=== PATIENT | male | born 1965 | race Caucasian/White ===

== ENCOUNTER → 2017-01-05 | Outpatient (CLI) | payer OTHER ==
--- NOTE | 2017-01-05 13:22 | KCIC ---
FOOT RIGHT 3V Indication: Stepped on glass 3 months ago, in the right fifth MTP joint region. . Comparison: No comparison is available. FINDINGS: No evidence of radiopaque soft tissue foreign body. Note that not all glass density is radiopaque. No evidence of acute fracture or aggressive bone destruction. Joint spaces and alignment are intact. IMPRESSION: No acute radiographic findings. If further workup for soft tissue foreign body is indicated, consider ultrasound of the area. Electronically signed by: Chuck Shepherd MD (01/05/2017 1:18 PM) [facility]-KC[facility]2
== END | disposition home or self-care (01) ==
LOC: KCIC 10:34
PROVIDERS: ATTEND Family Medicine
DX: M79.671 Pain in right foot (principal)
CPT/HCPCS: 73630

== ENCOUNTER → 2019-09-29 | Outpatient (CLI) | payer OTHER ==
[~2019-09-29] MED LIST: CONTRAST GIVEN. MC PRN; IOHEXOL 300 MG/ML 100ML VIAL. IV ONE
--- NOTE | 2019-09-29 09:11 | KCIC ---
CT study soft tissues the neck with contrast Clinical indications: Palpable mass left side 4 days. Left-sided neck pain. TECHNIQUE: After IV infusion of 70 mL of Omnipaque 300, helical CT scanning of the soft tissues of the neck from the base of skull down through the lung apices was performed. BB was placed over the palpable area. PQRS compliance Statement One or more of the following individualized dose reduction techniques were utilized for this study: 1. Automated exposure control 2. Adjustment of the mA and/or kV according to patient size 3. Use of iterative reconstruction technique FINDINGS: In the area of palpable abnormality of the lower left side of the neck, an irregular soft tissue mass is seen contiguous with the posterior aspect of the left sternocleidomastoid muscle. This mass measures 4.5 cm in vertical dimension and 4.4 cm in transverse dimension and 2.6 cm in AP dimension. There is a peripheral thick solid component with a central hypodense component. Central hypodense component measures 2.1 cm in size. It demonstrates Hounsfield unit measurements of 13. This is consistent with fluid. Therefore, this may represent a necrotic cystic soft tissue mass/lymph node or an abscess. There is mild adjacent inflammatory change. This compresses but does not occlude the left internal jugular vein. Bilateral cervical lymphadenopathy is evident. Largest lymph node on the left side is seen within the lower lateral left side of the neck just superior to the left clavicle anterior to the trapezius muscle measuring 19 mm. The largest lymph node on the right side is seen deep to sternocleidomastoid muscle measuring 14 mm. Both of these measurements were performed in the axial plane. The thyroid gland is unremarkable. The true and false vocal cords and preepiglottic fat space and epiglottis and aryepiglottic folds are normal. The palatine tonsillar fossa and adenoids are unremarkable. Mild sublingual tonsillar hyperplasia is seen within the valleculae. Otherwise the base of the tongue is unremarkable. No prevertebral or parapharyngeal soft tissue mass/abscess is seen. No lung apical infiltrate is seen. No opacification of the maxillary sinuses is seen. Only the inferior aspect of the sphenoid sinuses are seen in this study which are clear. The ethmoid and frontal sinuses are not seen in this study. No lytic process or periapical dental disease is seen. The submandibular and parotid salivary glands are unremarkable. IMPRESSION: Palpable lump of the left side of the neck corresponds to an irregular soft tissue mass with a central fluid like hypodense component. Differential considerations include necrotic cystic soft tissue mass including sarcoma or necrotic cystic lymph node related to lymphoma/metastatic disease or intramuscular/perimuscular soft tissue abscess. Bilateral cervical lymphadenopathy which may be reactive in nature or could be secondary to lymphoma. Electronically signed by: Chris Keane MD (09/29/2019 9:08 AM) [id number]
== END ==
LOC: KCIC CT 08:01
PROVIDERS: ATTEND Family Medicine
DX: R22.1 Localized swelling, mass and lump, neck (principal)
CPT/HCPCS: 70491; Q9967

== ENCOUNTER 2019-10-12 08:20 | Outpatient (CLI) | payer OTHER ==
[~2019-10-12] VITALS: Ht 180.3 cm; Wt 88.0 kg
[2019-10-12 09:19] VITALS: BP 142/93
[2019-10-12] MEDS ORDERED: LIDOCAINE WITH 8.4% SOD BICARB 3 ML DISP.SYRIN. ONE (09:22)
[2019-10-12] MEDS ORDERED: LIDOCAINE WITH 8.4% SOD BICARB 3 ML DISP.SYRIN. INJ ONE (09:30)
[2019-10-12 09:34] VITALS: BP 140/85
[2019-10-12 09:54] VITALS: BP 144/90
[2019-10-12 10:10] VITALS: BP 148/65
[2019-10-12 10:25] VITALS: BP 131/93
[2019-10-12 10:40] VITALS: BP 146/96
--- NOTE | 2019-10-12 10:45 | NUR ---
Discharge Note: RAHUL CLARK Discharge instructions and discharge home medications reviewed with Patient and a copy given. All questions have been answered and understanding verbalized. The following instructions and handouts were given: incision care Discontinued lines and drains: N/A Patient discharged to home with via personal vehicle.
--- NOTE | 2019-10-13 09:13 | RAD ---
Ultrasound-guided biopsy, left neck mass 10/12/2019 INDICATION: Left neck mass Discussion The procedure was explained in its entirety to the patient or the patients designated associate financial representative by a member of the treatment team, including a discussion of the risks, benefits and commonly accepted alternatives to the procedure, as well as the expected consequences of no therapy whatsoever. Discussion of the risks included, but was not limited to, those that are most frequent and those that are rare but possibly severe or life-threatening, as well as the possibility of unforeseen complications. All elements of maximal sterile barrier technique including the use of a cap, mask, sterile gown, sterile gloves, sterile sheet, appropriate hand hygiene, and 2% chlorhexidine for cutaneous antisepsis (or acceptable alternative antiseptic per current guidelines) were followed for this procedure. Ultrasound evaluation demonstrates a heterogenous mass in the left neck just deep to the sternocleidomastoid. The appearance suggests a partially necrotic lymph node. Other smaller, but abnormal lymph nodes are noted adjacent to this mass. The overlying skin was prepped and draped as described. 1% lidocaine was administered for local anesthesia. Under direct ultrasound guidance multiple passes through the mass are made with an 18-gauge core biopsy needle. Examination of solid and necrotic material was obtained. 17-gauge needle was advanced into the center of the lesion and aspiration performed yielding approximately 5 cc of somewhat purulent appearing material. No further material could be aspirated. Samples were sent for culture, cytologic evaluation, and flow cytometry. Manual pressure was held. Sterile dressings were applied. No immediate complications were identified. Impression: Ultrasound-guided biopsy, left neck mass
== END 2019-10-12 10:45 | disposition home or self-care (01) ==
LOC: INTRAD 08:20
PROVIDERS: ATTEND Surgery
DX: R22.1 Localized swelling, mass and lump, neck (principal)
CPT/HCPCS: 38505; 76942; 87071; 87075; 87102; 87116; J3490; 76937

== ENCOUNTER → 2019-10-26 | Outpatient (CLI) | payer OTHER ==
[2019-10-12 10:40] VITALS: BP 146/96
[2019-10-26 10:31] LABS: BASO % 0 % (0-3); EOS # 0.1 x10^3/uL (0.0-0.7); EOS % 1 % (0-3); HEMATOCRIT 48.5 % (39.0-53.0); HEMOGLOBIN 16.9 g/dL (13.0-17.5); LYMPH # 0.9 x10^3/uL (1.0-4.8); LYMPH % 12 % (24-48); MEAN CORPUSCULAR HEMOGLOBIN 33 pg (25-35); MEAN CORPUSCULAR HGB CONC 35 g/dL (31-37); MEAN CORPUSCULAR VOLUME 94 fL (79-100); MONO # 0.6 x10^3/uL (0.0-1.1); MONO % 8 % (0-9); NEUT # 6.4 x10^3/uL (1.8-7.7); NEUT % 79 % (31-73); PLATELET COUNT 246 x10^3/uL (140-400); RED BLOOD COUNT 5.17 x10^6/uL (4.30-5.70); RED CELL DISTRIBUTION WIDTH 13.1 % (11.5-14.5); WHITE BLOOD COUNT 8.1 x10^3/uL (4.0-11.0)
[2019-10-26 10:46] LABS: CALCIUM 9.2 mg/dL (8.5-10.1); GFR 78.2; POTASSIUM 4.2 mmol/L (3.5-5.1)
[2019-10-26 10:52] LABS: ALBUMIN 3.9 g/dL (3.4-5.0); TOTAL BILIRUBIN 0.7 mg/dL (0.2-1.0); TOTAL PROTEIN 7.8 g/dL (6.4-8.2)
== END | disposition home or self-care (01) ==
LOC: ONCLAB 10:09
PROVIDERS: ATTEND Internal Medicine Hematology & Oncology
DX: C77.0 Secondary and unspecified malignant neoplasm of lymph nodes of head, face and neck (principal)
CPT/HCPCS: 36415; 80053; 85025

== ENCOUNTER → 2019-10-27 | Outpatient (CLI) | payer OTHER ==
[2019-10-12 10:40] VITALS: BP 146/96
--- NOTE | 2019-10-27 18:36 | RAD ---
EXAM: PET W CT SKULL TO MIDTHIGH EXAM DATE: 10/27/2019 INDICATION: Reason: MALIGNANT CARCINOID TUMOR ON NECK / Spl. 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 RADIOPHARMACEUTICAL: 12.4 mCi of F-18 Fluorodeoxyglucose (FDG) I.V. via the right antecubital fossa. TECHNIQUE: Patient weight: 196 pounds. Following at least four-hour fasting, the patient's blood glucose was 90 mg/dl. Approximately 1 hour after administration of FDG, overlapping emission scanning was performed from the orbital meatal line through the pelvis. A low-dose CT was performed for attenuation correction purposes and anatomic localization. Fused images of PET and CT were reviewed. Any standardized uptake values (SUV) reported are maximum values within a volume region of interest, expressed in gm/ml. COMPARISON: CT soft tissue neck with IV contrast of 09/29/2019 FINDINGS: PET: Head and neck shows asymmetric FDG uptake in the left base of tongue and vallecula to a max SUV of 8.6. In addition, multiple left level 2 cervical lymph nodes showing central hypodensity on contrast enhanced CT show abnormal FDG uptake to max SUV of 11.1. The dominant palpable left neck mass likely represents diffusely infiltrated left level 4 cervical lymph node with evidence of extracapsular terminal spread (or post biopsy changes) with central necrosis. It shows abnormal uptake to max SUV of 18.4. Additional asymmetrically enlarged left level 4 cervical lymph nodes between the carotid sheath and the anterior scalene muscle immediately lateral to the thyroid gland are also present, showing abnormal FDG uptake to a max SUV of 10.7 (although due to their proximity to the dominant left neck mass, may be potentially volume averaged and thus difficult to accurately measure FDG uptake). Finally, left-sided level 5 cervical nodes also show abnormal FDG uptake, the larger of which is likely the other palpable left neck mass. This shows an abnormal FDG uptake to max SUV of 6.8. There are right-sided level 2 cervical nodes also showing abnormal FDG uptake to max SUV of 5.8. There are also right-sided level 3 cervical nodes that show abnormal FDG uptake to a max SUV of 4.4. No abnormal FDG uptake is otherwise appreciated in the included field of view. This includes the chest, abdomen, pelvis and skeletal system. CT: Chest shows no lung nodules, masses or suspicious opacities. There is no adenopathy or pleural effusion. Abdomen and pelvis show no visceral organ abnormalities and no acute bowel pathology with scattered colonic diverticuli incidentally noted. There is a fat-containing umbilical hernia. Prostate mildly enlarged measuring 5.5 cm in diameter. No acute or aggressive appearing osseous lesions. IMPRESSION: 1. Abnormal FDG uptake in the left greater than right bilateral cervical lymph nodes from levels 2 through 5 as described, compatible with patient's history of biopsy-proven squamous cell carcinoma. 2. There is asymmetric FDG uptake at the left base of tongue and vallecula of uncertain significance. Recommend correlation with clinical exam. 3. No evidence of thoracic malignancy or of distant metastatic disease. Electronically signed by: Jacqueline García MD (10/27/2019 6:33 PM) [id number]
== END | disposition home or self-care (01) ==
LOC: PETSC 10:35
PROVIDERS: ATTEND Otolaryngology Otolaryngology/Facial Plastic Surgery
DX: R22.1 Localized swelling, mass and lump, neck (principal)
CPT/HCPCS: 78815; A9552

== ENCOUNTER → 2019-11-09 | Outpatient (CLI) | payer OTHER ==
[2019-10-12 10:40] VITALS: BP 146/96
[2019-11-09 08:32] LABS: BASO % 1 % (0-3); EOS # 0.1 x10^3/uL (0.0-0.7); EOS % 2 % (0-3); HEMATOCRIT 43.2 % (39.0-53.0); HEMOGLOBIN 15.4 g/dL (13.0-17.5); LYMPH # 0.8 x10^3/uL (1.0-4.8); LYMPH % 14 % (24-48); MEAN CORPUSCULAR HEMOGLOBIN 33 pg (25-35); MEAN CORPUSCULAR HGB CONC 36 g/dL (31-37); MEAN CORPUSCULAR VOLUME 93 fL (79-100); MONO # 0.4 x10^3/uL (0.0-1.1); MONO % 6 % (0-9); NEUT # 4.5 x10^3/uL (1.8-7.7); NEUT % 77 % (31-73); PLATELET COUNT 197 x10^3/uL (140-400); RED BLOOD COUNT 4.63 x10^6/uL (4.30-5.70); RED CELL DISTRIBUTION WIDTH 12.7 % (11.5-14.5); WHITE BLOOD COUNT 5.9 x10^3/uL (4.0-11.0)
[2019-11-09 08:54] LABS: CALCIUM 8.7 mg/dL (8.5-10.1); GFR 78.2
[2019-11-09 08:58] LABS: ALBUMIN 3.6 g/dL (3.4-5.0); ALBUMIN/GLOBULIN RATIO 1.2 (1.0-1.7); TOTAL BILIRUBIN 0.4 mg/dL (0.2-1.0); TOTAL PROTEIN 6.6 g/dL (6.4-8.2)
== END | disposition home or self-care (01) ==
LOC: ONCLAB 08:06
PROVIDERS: ATTEND Internal Medicine Hematology & Oncology
DX: C77.0 Secondary and unspecified malignant neoplasm of lymph nodes of head, face and neck (principal)
CPT/HCPCS: 36415; 80053; 85025

== ENCOUNTER → 2019-11-16 | Outpatient (CLI) | payer OTHER ==
[2019-11-16 08:28] LABS: BASO % 0 % (0-3); EOS # 0.1 x10^3/uL (0.0-0.7); EOS % 1 % (0-3); HEMATOCRIT 44.2 % (39.0-53.0); HEMOGLOBIN 15.7 g/dL (13.0-17.5); LYMPH # 0.6 x10^3/uL (1.0-4.8); LYMPH % 10 % (24-48); MEAN CORPUSCULAR HEMOGLOBIN 33 pg (25-35); MEAN CORPUSCULAR HGB CONC 35 g/dL (31-37); MEAN CORPUSCULAR VOLUME 93 fL (79-100); MONO # 0.6 x10^3/uL (0.0-1.1); MONO % 10 % (0-9); NEUT # 4.8 x10^3/uL (1.8-7.7); NEUT % 79 % (31-73); PLATELET COUNT 261 x10^3/uL (140-400); RED BLOOD COUNT 4.77 x10^6/uL (4.30-5.70); RED CELL DISTRIBUTION WIDTH 12.5 % (11.5-14.5); WHITE BLOOD COUNT 6.1 x10^3/uL (4.0-11.0)
[2019-11-16 08:35] LABS: CALCIUM 9.3 mg/dL (8.5-10.1); CREATININE 1.1 mg/dL (0.7-1.3); POTASSIUM 4.1 mmol/L (3.5-5.1)
[2019-11-16 08:40] LABS: ALBUMIN 3.5 g/dL (3.4-5.0); ALBUMIN/GLOBULIN RATIO 0.9 (1.0-1.7); TOTAL BILIRUBIN 0.5 mg/dL (0.2-1.0); TOTAL PROTEIN 7.4 g/dL (6.4-8.2)
== END | disposition home or self-care (01) ==
LOC: ONCLAB 08:16
PROVIDERS: ATTEND Internal Medicine Hematology & Oncology
DX: C01 Malignant neoplasm of base of tongue (principal)
CPT/HCPCS: 36415; 80053; 85025

== ENCOUNTER → 2019-11-17 | Outpatient (CLI) | payer OTHER ==
[~2019-11-17] VITALS: Ht 177.8 cm; Wt 88.5 kg
[~2019-11-17] MED LIST changes: -CONTRAST GIVEN. MC PRN; -IOHEXOL 300 MG/ML 100ML VIAL. IV ONE; +LIDOCAINE WITH 8.4% SOD BICARB 3 ML DISP.SYRIN. INJ ONE; +LIDOCAINE WITH 8.4% SOD BICARB 3 ML DISP.SYRIN. ONE
[2019-11-17 07:55] VITALS: BP 151/98
--- NOTE | 2019-11-17 13:23 | RAD ---
Exam: Fluoroscopic and ultrasound guided right percutaneous inserted central venous catheter placement 11/17/2019 11:19 AM .Indication: CHEMOTHERAPY Technique: Informed oral and written consent were obtained. The right upper extremity was prepped and draped using sterile barrier technique. All elements of maximal sterile barrier technique including the use of a cap, mask, sterile gown, sterile gloves, large sterile sheet, appropriate hand hygiene, and 2% chlorhexidine for cutaneous antisepsis (or acceptable alternative antiseptic per current guidelines) were followed for this procedure.. Real-time ultrasound demonstrated a patent right basilic vein which was prepped and draped in usual sterile fashion. 1% lidocaine used for local anesthesia. Using real-time ultrasound guidance the access needle percutaneously punctured the selected right basilic vein. Reference ultrasound images were saved to the medical record. A guidewire was advanced through the needle to the cavoatrial junction, and a peel-away sheath placed. The catheter was cut to length and inserted through the peel-away sheath such that its tip is at the cavoatrial junction. The wire and sheath were removed, and the catheter secured in place, and a sterile dressing was applied. Catheter was found to flush and aspirate normally. No immediate complications are identified. FLUORO TIME 0.1 minutes DOSE AREA PRODUCT: 0.1 Gycm2 Impression: Ultrasound and fluoroscopically guided placement of a right upper extremity PICC line.
== END | disposition home or self-care (01) ==
LOC: INTRAD 07:38
PROVIDERS: ATTEND Physician Assistant
DX: C01 Malignant neoplasm of base of tongue (principal); Z79.899 Other long term (current) drug therapy
CPT/HCPCS: 36573; C1751; C1892; J3490; 77001

== ENCOUNTER → 2019-11-23 | Outpatient (CLI) | payer OTHER ==
[2019-11-17 07:55] VITALS: BP 151/98
[2019-11-23 08:38] LABS: BASO % 0 % (0-3); EOS # 0.1 x10^3/uL (0.0-0.7); EOS % 1 % (0-3); HEMATOCRIT 42.3 % (39.0-53.0); HEMOGLOBIN 14.8 g/dL (13.0-17.5); LYMPH # 0.3 x10^3/uL (1.0-4.8); MEAN CORPUSCULAR HEMOGLOBIN 32 pg (25-35); MEAN CORPUSCULAR HGB CONC 35 g/dL (31-37); MEAN CORPUSCULAR VOLUME 92 fL (79-100); MONO # 0.4 x10^3/uL (0.0-1.1); MONO % 9 % (0-9); NEUT # 3.9 x10^3/uL (1.8-7.7); PLATELET COUNT 170 x10^3/uL (140-400); RED BLOOD COUNT 4.59 x10^6/uL (4.30-5.70); RED CELL DISTRIBUTION WIDTH 12.6 % (11.5-14.5); WHITE BLOOD COUNT 4.7 x10^3/uL (4.0-11.0)
[2019-11-23 08:42] LABS: LYMPH % 9 % (24-48)
[2019-11-23 08:43] LABS: NEUT % 81 % (31-73)
[2019-11-23 08:51] LABS: CALCIUM 8.9 mg/dL (8.5-10.1); CREATININE 0.9 mg/dL (0.7-1.3); GFR 88.3; POTASSIUM 4.3 mmol/L (3.5-5.1)
[2019-11-23 08:55] LABS: ALBUMIN 3.5 g/dL (3.4-5.0); TOTAL BILIRUBIN 0.5 mg/dL (0.2-1.0); TOTAL PROTEIN 7.1 g/dL (6.4-8.2)
== END | disposition home or self-care (01) ==
LOC: ONCLAB 08:12
PROVIDERS: ATTEND Internal Medicine Hematology & Oncology
DX: C77.0 Secondary and unspecified malignant neoplasm of lymph nodes of head, face and neck (principal)
CPT/HCPCS: 36415; 80053; 85025

== ENCOUNTER → 2019-11-30 | Outpatient (CLI) | payer OTHER ==
[2019-11-17 07:55] VITALS: BP 151/98
[2019-11-30 08:17] LABS: BASO % 0 % (0-3); EOS % 1 % (0-3); HEMATOCRIT 42.4 % (39.0-53.0); LYMPH # 0.2 x10^3/uL (1.0-4.8); LYMPH % 5 % (24-48); MEAN CORPUSCULAR HEMOGLOBIN 33 pg (25-35); MEAN CORPUSCULAR HGB CONC 35 g/dL (31-37); MEAN CORPUSCULAR VOLUME 93 fL (79-100); MONO # 0.5 x10^3/uL (0.0-1.1); MONO % 13 % (0-9); NEUT # 3.2 x10^3/uL (1.8-7.7); NEUT % 80 % (31-73); PLATELET COUNT 181 x10^3/uL (140-400); RED BLOOD COUNT 4.59 x10^6/uL (4.30-5.70); RED CELL DISTRIBUTION WIDTH 12.3 % (11.5-14.5)
[2019-11-30 08:33] LABS: CALCIUM 9.4 mg/dL (8.5-10.1); CREATININE 1.1 mg/dL (0.7-1.3); POTASSIUM 4.3 mmol/L (3.5-5.1)
[2019-11-30 08:38] LABS: ALBUMIN 3.6 g/dL (3.4-5.0); ALBUMIN/GLOBULIN RATIO 0.9 (1.0-1.7); MAGNESIUM 2.2 mg/dL (1.8-2.4); TOTAL BILIRUBIN 0.7 mg/dL (0.2-1.0); TOTAL PROTEIN 7.5 g/dL (6.4-8.2)
== END ==
LOC: ONCLAB 08:00
PROVIDERS: ATTEND Internal Medicine Hematology & Oncology
DX: C01 Malignant neoplasm of base of tongue (principal)
CPT/HCPCS: 36415; 80053; 83735; 85025

== ENCOUNTER → 2019-12-07 | Outpatient (CLI) | payer OTHER ==
[2019-11-17 07:55] VITALS: BP 151/98
[2019-12-07 08:19] LABS: BASO % 0 % (0-3); EOS % 1 % (0-3); HEMATOCRIT 37.3 % (39.0-53.0); HEMOGLOBIN 13.2 g/dL (13.0-17.5); LYMPH # 0.1 x10^3/uL (1.0-4.8); LYMPH % 5 % (24-48); MEAN CORPUSCULAR HEMOGLOBIN 33 pg (25-35); MEAN CORPUSCULAR HGB CONC 35 g/dL (31-37); MEAN CORPUSCULAR VOLUME 93 fL (79-100); MONO # 0.2 x10^3/uL (0.0-1.1); MONO % 8 % (0-9); NEUT % 86 % (31-73); PLATELET COUNT 100 x10^3/uL (140-400); RED BLOOD COUNT 4.03 x10^6/uL (4.30-5.70); RED CELL DISTRIBUTION WIDTH 12.7 % (11.5-14.5); WHITE BLOOD COUNT 2.3 x10^3/uL (4.0-11.0)
[2019-12-07 08:27] LABS: CALCIUM 9.1 mg/dL (8.5-10.1); GFR 78.2
[2019-12-07 08:33] LABS: ALBUMIN 3.6 g/dL (3.4-5.0); ALBUMIN/GLOBULIN RATIO 1.1 (1.0-1.7); MAGNESIUM 1.8 mg/dL (1.8-2.4); TOTAL BILIRUBIN 0.7 mg/dL (0.2-1.0)
[2019-12-07 09:10] LABS: % EOS 2 % (0-5); % LYMPHS 6 % (24-48); % MONOS 6 % (0-10); % SEGS 86 % (35-66); PLT ESTIMATE DECREASED (ADEQUATE)
== END ==
LOC: ONCLAB 08:02
PROVIDERS: ATTEND Physician Assistant
DX: C01 Malignant neoplasm of base of tongue (principal)
CPT/HCPCS: 36415; 80053; 83735; 85007; 85025

== ENCOUNTER → 2019-12-14 | Outpatient (CLI) | payer OTHER ==
[2019-11-17 07:55] VITALS: BP 151/98
[2019-12-14 09:23] LABS: BASO % 0 % (0-3); EOS % 0 % (0-3); HEMATOCRIT 36.6 % (39.0-53.0); HEMOGLOBIN 12.7 g/dL (13.0-17.5); LYMPH # 0.1 x10^3/uL (1.0-4.8); LYMPH % 4 % (24-48); MEAN CORPUSCULAR HEMOGLOBIN 32 pg (25-35); MEAN CORPUSCULAR HGB CONC 35 g/dL (31-37); MEAN CORPUSCULAR VOLUME 93 fL (79-100); MONO # 0.2 x10^3/uL (0.0-1.1); MONO % 9 % (0-9); NEUT # 1.9 x10^3/uL (1.8-7.7); NEUT % 86 % (31-73); PLATELET COUNT 89 x10^3/uL (140-400); RED BLOOD COUNT 3.94 x10^6/uL (4.30-5.70); RED CELL DISTRIBUTION WIDTH 12.7 % (11.5-14.5); WHITE BLOOD COUNT 2.2 x10^3/uL (4.0-11.0)
[2019-12-14 09:34] LABS: CALCIUM 9.2 mg/dL (8.5-10.1); GFR 78.2; POTASSIUM 4.3 mmol/L (3.5-5.1)
[2019-12-14 09:39] LABS: ALBUMIN 3.7 g/dL (3.4-5.0); ALBUMIN/GLOBULIN RATIO 1.1 (1.0-1.7); MAGNESIUM 1.7 mg/dL (1.8-2.4); TOTAL BILIRUBIN 0.6 mg/dL (0.2-1.0); TOTAL PROTEIN 7.2 g/dL (6.4-8.2)
== END ==
LOC: ONCLAB 09:14
PROVIDERS: ATTEND Internal Medicine Hematology & Oncology
DX: C77.0 Secondary and unspecified malignant neoplasm of lymph nodes of head, face and neck (principal)
CPT/HCPCS: 36415; 80053; 83735; 85025

== ENCOUNTER → 2019-12-18 | Outpatient (CLI) | payer OTHER ==
[2019-11-17 07:55] VITALS: BP 151/98
[2019-12-18 09:24] LABS: CALCIUM 9.7 mg/dL (8.5-10.1); CREATININE 1.5 mg/dL (0.7-1.3); POTASSIUM 4.5 mmol/L (3.5-5.1)
[2019-12-18 09:30] LABS: ALBUMIN 3.8 g/dL (3.4-5.0); ALBUMIN/GLOBULIN RATIO 1.1 (1.0-1.7); MAGNESIUM 1.8 mg/dL (1.8-2.4); TOTAL BILIRUBIN 0.5 mg/dL (0.2-1.0); TOTAL PROTEIN 7.3 g/dL (6.4-8.2)
[2019-12-18 09:32] LABS: BASO % 0 % (0-3); EOS % 1 % (0-3); HEMATOCRIT 36.2 % (39.0-53.0); HEMOGLOBIN 12.4 g/dL (13.0-17.5); LYMPH # 0.1 x10^3/uL (1.0-4.8); LYMPH % 4 % (24-48); MEAN CORPUSCULAR HEMOGLOBIN 33 pg (25-35); MEAN CORPUSCULAR HGB CONC 34 g/dL (31-37); MEAN CORPUSCULAR VOLUME 95 fL (79-100); MONO # 0.2 x10^3/uL (0.0-1.1); MONO % 10 % (0-9); NEUT # 1.6 x10^3/uL (1.8-7.7); NEUT % 85 % (31-73); PLATELET COUNT 113 x10^3/uL (140-400); RED BLOOD COUNT 3.82 x10^6/uL (4.30-5.70)
[2019-12-18 10:04] LABS: WHITE BLOOD COUNT 1.9 x10^3/uL (4.0-11.0)
[2019-12-18 19:36] LABS: % BANDS 2 % (0-9); % BASOS 1 % (0-3); % LYMPHS 3 % (24-48); % MONOS 13 % (0-10); % SEGS 81 % (35-66); ANISOCYTOSIS SLIGHT; PLATELET CLUMP PRESENT; PLT ESTIMATE DECREASED (ADEQUATE); TOXIC GRANULATION SLIGHT
== END ==
LOC: ONCLAB 08:50
PROVIDERS: ATTEND Internal Medicine Hematology & Oncology
DX: C77.0 Secondary and unspecified malignant neoplasm of lymph nodes of head, face and neck (principal)
CPT/HCPCS: 36415; 80053; 83735; 85007; 85025

== ENCOUNTER → 2019-12-19 | Outpatient (CLI) | payer OTHER ==
[2019-11-17 07:55] VITALS: BP 151/98
== END ==
LOC: LAB 12:23
PROVIDERS: ATTEND Surgery
DX: Z01.812 Encounter for preprocedural laboratory examination (principal); C01 Malignant neoplasm of base of tongue; Z20.828 Contact with and (suspected) exposure to other viral communicable diseases
CPT/HCPCS: U0003

== ENCOUNTER → 2019-12-21 | Outpatient (CLI) | payer OTHER ==
[2019-11-17 07:55] VITALS: BP 151/98
[~2019-12-21] MED LIST changes: -LIDOCAINE WITH 8.4% SOD BICARB 3 ML DISP.SYRIN. INJ ONE; -LIDOCAINE WITH 8.4% SOD BICARB 3 ML DISP.SYRIN. ONE; +MORP-16 PO; +OLAN5TAB9 PO; +PANT40TA77 PO
[2019-12-21 08:38] LABS: BASO % 0 % (0-3); EOS % 1 % (0-3); HEMATOCRIT 34.3 % (39.0-53.0); LYMPH # 0.1 x10^3/uL (1.0-4.8); LYMPH % 5 % (24-48); MEAN CORPUSCULAR HEMOGLOBIN 33 pg (25-35); MEAN CORPUSCULAR HGB CONC 35 g/dL (31-37); MEAN CORPUSCULAR VOLUME 94 fL (79-100); MONO # 0.2 x10^3/uL (0.0-1.1); MONO % 11 % (0-9); NEUT # 1.4 x10^3/uL (1.8-7.7); NEUT % 82 % (31-73); PLATELET COUNT 158 x10^3/uL (140-400); RED BLOOD COUNT 3.65 x10^6/uL (4.30-5.70); RED CELL DISTRIBUTION WIDTH 12.9 % (11.5-14.5)
[2019-12-21 08:40] LABS: WHITE BLOOD COUNT 1.7 x10^3/uL (4.0-11.0)
[2019-12-21 08:49] LABS: CALCIUM 9.4 mg/dL (8.5-10.1); CREATININE 1.2 mg/dL (0.7-1.3); GFR 63.3; POTASSIUM 4.1 mmol/L (3.5-5.1)
[2019-12-21 08:54] LABS: ALBUMIN 3.7 g/dL (3.4-5.0); ALBUMIN/GLOBULIN RATIO 1.1 (1.0-1.7); MAGNESIUM 1.8 mg/dL (1.8-2.4); TOTAL BILIRUBIN 0.5 mg/dL (0.2-1.0); TOTAL PROTEIN 7.1 g/dL (6.4-8.2)
== END ==
LOC: ONCLAB 08:10
PROVIDERS: ATTEND Internal Medicine Hematology & Oncology
DX: C01 Malignant neoplasm of base of tongue (principal)
CPT/HCPCS: 36415; 80053; 83615; 83735; 85025

== ENCOUNTER 2019-12-22 06:27 | Day surgery (SDC) | payer OTHER ==
[~2019-12-22] VITALS: Ht 177.8 cm; Wt 79.0 kg
[2019-12-22] MEDS ORDERED: ACETAMINOPHEN 500 MG TABLET PO ONE (06:30)
[2019-12-22] MEDS ORDERED: MORP-16 PO (06:52)
[2019-12-22] MEDS ORDERED: PANT40TA77 PO (06:53)
[2019-12-22] MEDS ORDERED: OLAN5TAB9 PO (06:53)
[2019-12-22] MEDS ORDERED: ONDANSETRON PF 4 MG/2 ML VIAL. IV PRN (07:00)
[2019-12-22] MEDS ORDERED: fentaNYL PF VIAL 100 MCG/2 ML VIAL IV PRN ×2 (07:00)
[2019-12-22] MEDS ORDERED: HYDROmorphone 2 MG/ML VIAL IV PRN (07:00)
[2019-12-22] MEDS ORDERED: MORPHINE SULFATE 2 MG/ML VIAL. IV PRN (07:00)
[2019-12-22] MEDS ORDERED: PROCHLORPERAZINE 10 MG/2 ML VIAL. IV PRN (07:00)
[2019-12-22] MEDS ORDERED: IV RINGERS,LACTATED 1000ML 1,000 ML IV SCH (07:00)
[2019-12-22] MEDS ORDERED: SUCCINYLCHOLINE 200 MG/10 ML VIAL. ONE (07:40)
[2019-12-22] MEDS ORDERED: fentaNYL PF VIAL 100 MCG/2 ML VIAL ONE ×2 (07:40→09:18)
[2019-12-22] MEDS ORDERED: ROCURONIUM 50 MG/5 ML VIAL. ONE (07:40)
[2019-12-22] MEDS ORDERED: GLYCOPYRROLATE 1 MG/5 ML VIAL. ONE (07:40)
[2019-12-22] MEDS ORDERED: NEOSTIGMINE METHYLSULFATE 5 MG/5 ML SYRINGE. ONE (07:40)
[2019-12-22] MEDS ORDERED: MIDAZOLAM HCL/PF 2 MG/2 ML VIAL. ONE (07:40)
[2019-12-22] MEDS ORDERED: SEVOFLURANE 61 TO 120 MINUTES. IH ONE (07:40)
[2019-12-22] MEDS ORDERED: DEXAMETHASONE SOD PHOS 4 MG/ML VIAL ONE (07:41)
[2019-12-22] MEDS ORDERED: PROPOFOL 10 MG/ML (20ML) VIAL. IV ONE (07:41)
[2019-12-22] MEDS ORDERED: LIDOCAINE 2% PF 5 ML VIAL. ONE (07:41)
[2019-12-22] MEDS ORDERED: ONDANSETRON PF 4 MG/2 ML VIAL. ONE (07:41)
[2019-12-22] MEDS ORDERED: SCOPOLAMINE 1.5MG PATCH. TD ONE (07:55)
[2019-12-22] MEDS ORDERED: ceFAZolin SODIUM IV Push 1 GM VIAL. IVP PRN (08:00)
[2019-12-22] MEDS ORDERED: BUPIVACAINE-EPI 0.25%-1:200000 MPF 30 ML VIAL. INJ ONE (08:00)
[2019-12-22] MEDS ORDERED: BUPIVACAINE-EPI 0.5%-1:200000 MPF 30 ML VIAL. INJ ONE (08:00)
--- NOTE | 2019-12-22 08:58 | PDOC4 ---
Operative Note Operative Note Date: 1029 at 854 Preoperative diagnosis: Head neck cancer squamous cell dysphagia Postoperative diagnosis: Same Procedure: Esophagogastroduodenoscopy with percutaneous endoscopic gastrostomy tube Surgeon: Saurabh Specimen: None Dictation: Patient is a 54-year-old male who has a squamous cell carcinoma of the base of the tongue causing him dysphagia in light of this he is needing nutritional support and request for gastrostomy tube is been made. Procedure of EGD with PEG tube placement explained to the patient detail risk benefits were also discussed including bleeding infection also discussed may not be able to pass the scope due to his tumor and may have to do an open gastrostomy. Patient seemed understand and gave a verbal written consent to have the procedure performed. Patient was taken to the operating room placed in the supine position general anesthesia was initiated once patient was sleeping intubated a Olympus EGD scope was passed via the hypopharynx was noted that there was some swelling edema in this area but the scope was able to be passed into the es ophagus distally the stomach past the pylorus into the duodenum scope was retracted from the duodenum into the stomach. She generally appeared to be normal. The abdominal wall was palpated and area in the epigastrium was marked this area was prepped with ChloraPrep and 1% lidocaine with epinephrine was injected in this area a small incision was made with 11 blade scalpel and the needle catheter was passed through the anterior abdominal wall into the stomach directly visualized the wire was then passed through the catheter into the stomach this was grasped with the snare and brought out via the esophagus hypopharynx the mouth the gastrostomy tube was then attached to the wire and the wire was then pulled pulling the gastrostomy tube into the stomach through the anterior abdominal wall. The gastrostomy tube bumper was placed and the tube was cut to length with the adapter applied to the end of the tube this was dressed with a 4 x 4. Attempt to pass the EGD scope after placement of the gastrostomy tube was more difficult there was more swelling there was less room to pass the scope and at this point that was aborted to follow-up on the placement. Patient was awakened and extubated in the operating room taken to recovery in stable condition all sponge instrument needle counts listed as correct estimated blood loss less than 5 cc. CITLALY SAMANO MD Dec 22, 2019 08:58
--- NOTE | 2019-12-22 09:00 | DISCH ---
DISCHARGE INSTRUCTIONS Condition on Discharge Condition on Discharge: Stable Activity After Discharge Activity Instructions for Disc: Activity as tolerated Diet after Discharge Diet after Discharge: Cardiac Liquid Texture: Thin Liquid Wound Incision Care Wound/Incision Care: May get incision wet Other wound/incision instructi: May shower in 24 hours keeping the G-tube site as dry as possible Contacting the DRCatalino after DC Call your doctor for: If your condition worsens Follow-Up Follow up with: Dr. Samano in 2 weeks Treatment/Equipment after DC Adaptive Equipment Issued: None CITLALY SAMANO MD Dec 22, 2019 09:00
[2019-12-22 09:30] VITALS: BP 117/68
== END 2019-12-22 10:10 ==
LOC: SURG 06:27
PROVIDERS: ATTEND Surgery
DX: C01 Malignant neoplasm of base of tongue (principal); Z79.899 Other long term (current) drug therapy
CPT/HCPCS: 43246; A7015; C1769; J0330; J0690; J1100; J2250; J2405; J2704; J3010; J3490; J7120; J2710

== ENCOUNTER → 2019-12-28 | Outpatient (CLI) | payer OTHER ==
[2019-12-22 09:30] VITALS: BP 117/68
[2019-12-28 13:01] LABS: BASO % 0 % (0-3); EOS % 1 % (0-3); HEMOGLOBIN 10.2 g/dL (13.0-17.5); LYMPH # 0.1 x10^3/uL (1.0-4.8); LYMPH % 6 % (24-48); MEAN CORPUSCULAR HEMOGLOBIN 33 pg (25-35); MEAN CORPUSCULAR HGB CONC 35 g/dL (31-37); MEAN CORPUSCULAR VOLUME 93 fL (79-100); MONO # 0.5 x10^3/uL (0.0-1.1); MONO % 25 % (0-9); NEUT # 1.4 x10^3/uL (1.8-7.7); NEUT % 69 % (31-73); PLATELET COUNT 241 x10^3/uL (140-400); RED BLOOD COUNT 3.12 x10^6/uL (4.30-5.70); RED CELL DISTRIBUTION WIDTH 14.3 % (11.5-14.5); WHITE BLOOD COUNT 2.1 x10^3/uL (4.0-11.0)
[2019-12-28 13:02] LABS: CALCIUM 9.4 mg/dL (8.5-10.1); GFR 78.2; POTASSIUM 4.4 mmol/L (3.5-5.1)
[2019-12-28 13:09] LABS: ALBUMIN 3.1 g/dL (3.4-5.0); ALBUMIN/GLOBULIN RATIO 0.8 (1.0-1.7); TOTAL BILIRUBIN 0.5 mg/dL (0.2-1.0); TOTAL PROTEIN 7.1 g/dL (6.4-8.2)
[2019-12-28 14:07] LABS: % BANDS 25 % (0-9); % LYMPHS 5 % (24-48); % MONOS 22 % (0-10); % SEGS 48 % (35-66); PLT ESTIMATE ADEQUATE (ADEQUATE)
== END ==
LOC: ONCLAB 12:28
PROVIDERS: ATTEND Internal Medicine Hematology & Oncology
DX: C01 Malignant neoplasm of base of tongue (principal)
CPT/HCPCS: 36415; 80053; 85007; 85025

== ENCOUNTER → 2020-01-05 | Outpatient (CLI) | payer OTHER ==
[2019-12-22 09:30] VITALS: BP 117/68
[~2020-01-05] MED LIST changes: +IOHEXOL 300 MG/ML 100ML VIAL. IV ONE; +OLAN5TAB3 PO
--- NOTE | 2020-01-05 17:30 | KCIC ---
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 / Spl. Instructions: 95mL Omni 300. Swelling Lt side of neck post XRT, last tx. 12/25/2019 / History: TECHNIQUE: Multiple contiguous axial images were obtained of the neck with the use of IV contrast. Post-processing reconstructed images were obtained for interpretation. All CT scans performed at this facility utilize dose optimization techniques as appropriate to the exam, including the following: Automated exposure control and adjustment of the mA and/or KV according to patient size (this includes techniques or standardized protocols for targeted exams where dose is indication/reason for exam). IV CONTRAST: Administered COMPARISON: CT soft tissue neck of 09/29/2019 FINDINGS: INTRACRANIAL STRUCTURES & ORBITS: Unremarkable. AERODIGESTIVE: The nasal cavity, nasopharynx, oral cavity, oropharynx, hypopharynx, larynx, and visualized trachea and esophagus demonstrate no masses or abnormal enhancement. CERVICAL LYMPH NODES & SOFT TISSUES: There has been a marked interval improvement in bilateral cervical adenopathy with near complete resolution of the previously centrally necrotic left level 3 cervical lymph node that measured 4.5 cm in long axis on the prior study. Likewise, the previously enlarged 1.8 cm left level 5 cervical lymph node has decreased in size to 1.0 cm. There is residual mild enlargement of a left level IIb node measuring 1.2 x 0.8 cm (image 34 series 2) and there are left level 3 and 5 cervical nodes (image 42 of series 2) that are small in the interval but remain dense. There is asymmetric soft tissue swelling in the left side of the submandibular left face and the superficial lobe of the left parotid gland. Associated soft tissue thickening and stranding is present in the platysma in the overlying subcutaneous fat. No fluid collection, discrete mass is identified.. THYROID & SALIVARY GLANDS: Swollen left platysma and masseter muscles and superficial lobe left parotid gland. The thyroid is unremarkable. LUNG APICES: Clear. OSSEOUS: Unremarkable . There is some streak artifact from dental amalgam in the oral cavity that degrades detail. IMPRESSION: 1. Positive treatment response with decrease in size of numerous cervical lymph nodes bilaterally, primarily on the left side. 2. Interval development of soft tissue swelling and stranding in the left neck and face, primarily involving the superficial left parotid gland and masseter muscle. These are compatible with parotitis and myositis, possibly related to radiation therapy. No Stensen's duct stones identified. Electronically signed by: Jacqueline García MD (01/05/2020 5:27 PM) [id number]
== END ==
LOC: KCIC MRI 10:33
PROVIDERS: ATTEND Radiology Radiation Oncology
DX: C77.0 Secondary and unspecified malignant neoplasm of lymph nodes of head, face and neck (principal); C01 Malignant neoplasm of base of tongue; R22.1 Localized swelling, mass and lump, neck
CPT/HCPCS: 70491; Q9967

== ENCOUNTER → 2020-01-11 | Outpatient (CLI) | payer OTHER ==
[2020-01-08 10:46] VITALS: BP 113/70
[~2020-01-11] MED LIST changes: -IOHEXOL 300 MG/ML 100ML VIAL. IV ONE
[2020-01-11 10:55] LABS: BASO % 1 % (0-3); EOS % 1 % (0-3); HEMATOCRIT 31.6 % (39.0-53.0); HEMOGLOBIN 10.8 g/dL (13.0-17.5); LYMPH # 0.2 x10^3/uL (1.0-4.8); LYMPH % 3 % (24-48); MEAN CORPUSCULAR HEMOGLOBIN 32 pg (25-35); MEAN CORPUSCULAR HGB CONC 34 g/dL (31-37); MEAN CORPUSCULAR VOLUME 95 fL (79-100); MONO # 0.6 x10^3/uL (0.0-1.1); MONO % 10 % (0-9); NEUT % 86 % (31-73); PLATELET COUNT 544 x10^3/uL (140-400); RED BLOOD COUNT 3.34 x10^6/uL (4.30-5.70); RED CELL DISTRIBUTION WIDTH 14.9 % (11.5-14.5); WHITE BLOOD COUNT 5.9 x10^3/uL (4.0-11.0)
[2020-01-11 11:23] LABS: CALCIUM 9.2 mg/dL (8.5-10.1); CREATININE 0.9 mg/dL (0.7-1.3); GFR 88.3; POTASSIUM 5.1 mmol/L (3.5-5.1)
[2020-01-11 11:29] LABS: ALBUMIN 3.3 g/dL (3.4-5.0); TOTAL BILIRUBIN 0.2 mg/dL (0.2-1.0); TOTAL PROTEIN 6.7 g/dL (6.4-8.2)
== END ==
LOC: ONCLAB 10:36
PROVIDERS: ATTEND Internal Medicine Hematology & Oncology
DX: C01 Malignant neoplasm of base of tongue (principal)
CPT/HCPCS: 36415; 80053; 85025

== ENCOUNTER → 2020-01-22 | Outpatient (CLI) | payer OTHER ==
[2020-01-08 10:46] VITALS: BP 113/70
[2020-01-22 10:37] LABS: BASO % 0 % (0-3); EOS # 0.1 x10^3/uL (0.0-0.7); EOS % 3 % (0-3); HEMATOCRIT 31.3 % (39.0-53.0); HEMOGLOBIN 10.8 g/dL (13.0-17.5); LYMPH # 0.1 x10^3/uL (1.0-4.8); LYMPH % 4 % (24-48); MEAN CORPUSCULAR HEMOGLOBIN 34 pg (25-35); MEAN CORPUSCULAR HGB CONC 34 g/dL (31-37); MEAN CORPUSCULAR VOLUME 99 fL (79-100); MONO # 0.4 x10^3/uL (0.0-1.1); MONO % 13 % (0-9); NEUT # 2.6 x10^3/uL (1.8-7.7); NEUT % 81 % (31-73); PLATELET COUNT 211 x10^3/uL (140-400); RED BLOOD COUNT 3.18 x10^6/uL (4.30-5.70); RED CELL DISTRIBUTION WIDTH 18.6 % (11.5-14.5); WHITE BLOOD COUNT 3.2 x10^3/uL (4.0-11.0)
[2020-01-22 10:38] LABS: CALCIUM 9.3 mg/dL (8.5-10.1); GFR 87.9
[2020-01-22 10:40] LABS: CREATININE 0.9 mg/dL (0.7-1.3); POTASSIUM 4.2 mmol/L (3.5-5.1)
[2020-01-22 10:45] LABS: TOTAL BILIRUBIN 0.3 mg/dL (0.2-1.0)
[2020-01-22 10:47] LABS: ALBUMIN 3.5 g/dL (3.4-5.0); ALBUMIN/GLOBULIN RATIO 1.1 (1.0-1.7); TOTAL PROTEIN 6.8 g/dL (6.4-8.2)
[2020-01-22 13:04] LABS: % BANDS 1 % (0-9); % EOS 2 % (0-5); % LYMPHS 9 % (24-48); % MONOS 7 % (0-10); % SEGS 81 % (35-66); ANISOCYTOSIS SLIGHT; PLT ESTIMATE ADEQUATE (ADEQUATE)
== END ==
LOC: ONCLAB 09:55
PROVIDERS: ATTEND Internal Medicine Hematology & Oncology
DX: C01 Malignant neoplasm of base of tongue (principal)
CPT/HCPCS: 36415; 80053; 83735; 85007; 85025

== ENCOUNTER → 2020-02-05 | Outpatient (CLI) | payer OTHER ==
[2020-01-08 10:46] VITALS: BP 113/70
[2020-02-05 08:27] LABS: BASO % 1 % (0-3); EOS # 0.1 x10^3/uL (0.0-0.7); EOS % 4 % (0-3); HEMATOCRIT 39.6 % (39.0-53.0); HEMOGLOBIN 13.3 g/dL (13.0-17.5); LYMPH # 0.3 x10^3/uL (1.0-4.8); LYMPH % 11 % (24-48); MEAN CORPUSCULAR HEMOGLOBIN 34 pg (25-35); MEAN CORPUSCULAR HGB CONC 34 g/dL (31-37); MEAN CORPUSCULAR VOLUME 100 fL (79-100); MONO # 0.3 x10^3/uL (0.0-1.1); MONO % 11 % (0-9); NEUT # 1.9 x10^3/uL (1.8-7.7); NEUT % 73 % (31-73); PLATELET COUNT 181 x10^3/uL (140-400); RED BLOOD COUNT 3.96 x10^6/uL (4.30-5.70); RED CELL DISTRIBUTION WIDTH 16.3 % (11.5-14.5); WHITE BLOOD COUNT 2.5 x10^3/uL (4.0-11.0)
[2020-02-05 08:28] LABS: CALCIUM 9.6 mg/dL (8.5-10.1); CREATININE 0.9 mg/dL (0.7-1.3); GFR 87.9; POTASSIUM 4.1 mmol/L (3.5-5.1)
[2020-02-05 08:32] LABS: ALBUMIN 4.1 g/dL (3.4-5.0); ALBUMIN/GLOBULIN RATIO 1.3 (1.0-1.7); TOTAL BILIRUBIN 0.5 mg/dL (0.2-1.0); TOTAL PROTEIN 7.3 g/dL (6.4-8.2)
[2020-02-05 09:31] LABS: % BANDS 1 % (0-9); % BASOS 2 % (0-3); % EOS 3 % (0-5); % LYMPHS 7 % (24-48); % MONOS 5 % (0-10); % SEGS 82 % (35-66); PLT ESTIMATE ADEQUATE (ADEQUATE)
== END ==
LOC: ONCLAB 08:07
PROVIDERS: ATTEND Internal Medicine Hematology & Oncology
DX: C77.0 Secondary and unspecified malignant neoplasm of lymph nodes of head, face and neck (principal)
CPT/HCPCS: 36415; 80053; 85007; 85025

== ENCOUNTER → 2020-02-26 | Outpatient (CLI) | payer OTHER ==
[2020-01-08 10:46] VITALS: BP 113/70
== END ==
LOC: LAB 13:04
PROVIDERS: ATTEND Surgery
DX: Z01.812 Encounter for preprocedural laboratory examination (principal); Z20.828 Contact with and (suspected) exposure to other viral communicable diseases
CPT/HCPCS: U0003

== ENCOUNTER → 2020-02-29 | Day surgery (SDC) | payer OTHER ==
[~2020-02-29] VITALS: Ht 177.8 cm; Wt 80.5 kg
[~2020-02-29] MED LIST changes: +HYDROmorphone 2 MG/ML VIAL IV PRN; +IV RINGERS,LACTATED 1000ML 1,000 ML IV SCH; +LIDOCAINE 1% PF 2 ML VIAL. ID PRN; +MORPHINE SULFATE 2 MG/ML VIAL. IV PRN; +ONDANSETRON PF 4 MG/2 ML VIAL. IV PRN; +PROCHLORPERAZINE 10 MG/2 ML VIAL. IV PRN; +PROPOFOL 10 MG/ML (20ML) VIAL. IV ONE; +fentaNYL PF VIAL 100 MCG/2 ML VIAL IV PRN
[2020-02-29 08:52] VITALS: BP 120/75
== END | disposition home or self-care (01) ==
LOC: SURG 07:44
PROVIDERS: ATTEND Surgery
DX: Z43.1 Encounter for attention to gastrostomy (principal); R13.10 Dysphagia, unspecified; K21.9 Gastro-esophageal reflux disease without esophagitis; M19.90 Unspecified osteoarthritis, unspecified site; Z79.899 Other long term (current) drug therapy; Z98.890 Other specified postprocedural states; Z72.89 Other problems related to lifestyle
CPT/HCPCS: 43247; J2704

== ENCOUNTER → 2020-03-08 | Outpatient (CLI) | payer OTHER ==
[2020-02-29 08:52] VITALS: BP 120/75
[~2020-03-08] MED LIST changes: -HYDROmorphone 2 MG/ML VIAL IV PRN; -IV RINGERS,LACTATED 1000ML 1,000 ML IV SCH; -LIDOCAINE 1% PF 2 ML VIAL. ID PRN; -MORPHINE SULFATE 2 MG/ML VIAL. IV PRN; -ONDANSETRON PF 4 MG/2 ML VIAL. IV PRN; -PROCHLORPERAZINE 10 MG/2 ML VIAL. IV PRN; -PROPOFOL 10 MG/ML (20ML) VIAL. IV ONE; -fentaNYL PF VIAL 100 MCG/2 ML VIAL IV PRN
--- NOTE | 2020-03-08 17:01 | RAD ---
EXAM: NM PET/CT SKULL BASE TO MID THIGH EXAM DATE: 03/08/2020 INDICATION: Primary squamous cell carcinoma of the base of tongue. Restaging. RADIOPHARMACEUTICAL: 15.55 mCi of F-18 Fluorodeoxyglucose (FDG) I.V. via the left antecubital fossa. TECHNIQUE: Patient weight: 165 pounds. Following at least four-hour fasting, the patient's blood gluc ose was 91 mg/dl. Approximately 1 hour after administration of FDG, overlapping emission scanning wa s performed from the orbital meatal line through the pelvis. A low-dose CT was performed for attenua tion correction purposes and anatomic localization. Fused images of PET and CT were reviewed. Any st andardized uptake values (SUV) reported are maximum values within a volume region of interest, expres sed in gm/ml. COMPARISON: PET CT of 10/27/2019 FINDINGS: PET: Previous hypermetabolic activity at the base of tongue and in the bilateral cervical lymph nodes has since resolved. Subtle increase in soft tissue fullness in the hypopharynx is present at the level of the hyoid bone and shows FDG uptake to max SUV of 4.12. No abnormal FDG uptake in the head and neck is otherwise seen and no abnormal FDG activity in the [facility]de[facility] st, abdomen or pelvis to mid thighs. Reference FDG activity in the mediastinum is 2.58 and in the rishi er, 2.[address]: In the head and neck, the soft tissue fullness at the base of tongue and left vallecula as well as th e previously noted enlarged and hypermetabolic cervical lymph nodes have since resolved. There is new soft tissue fullness in the posterior aspect of the supraglottic larynx at the level of the hyoid bone that effaces the valleculae. There is some stranding in the subcutaneous fat of the upper neck at the level of the thyroid cartila ge consistent with benign radiation change. No evidence of osteoradionecrosis. No fluid collection or abnormal soft tissue gas. In the chest, no suspicious lung nodule or mass is evident. Mediastinum is unremarkable. No thoracic (mediastinal, hilar or axillary) adenopathy is apparent. No pneumothorax or pleural effusion. No acut e or aggressive appearing osseous lesions. In the abdomen and pelvis, fat-containing umbilical hernia is present with a 1.2 cm neck. Scattered colonic diverticuli are evident with no acute inflammatory changes. No ascites, fluid colle ction, free air or acute inflammation is apparent. The large bowel is collapsed, mimicking wall thick ening in the descending colon through the rectum. The osseous structures are unremarkable. IMPRESSION: 1. Positive treatment response with resolved base of tongue mass and cervical adenopathy but with mil d increase in soft tissue fullness in the hypopharynx, showing FDG uptake to max SUV of 4.12. 2. No other abnormal FDG activity in the included field of view. Electronically signed by: Jacqueline García MD (03/08/2020 4:59 PM) [id number]
== END ==
LOC: PETSC 08:15
PROVIDERS: ATTEND Radiology Radiation Oncology
DX: C01 Malignant neoplasm of base of tongue (principal); K42.9 Umbilical hernia without obstruction or gangrene
CPT/HCPCS: 78815; A9552

== ENCOUNTER → 2020-06-28 | Outpatient (CLI) | payer OTHER ==
[2020-02-29 08:52] VITALS: BP 120/75
[2020-06-28 08:51] LABS: BASO % 1 % (0-3); EOS # 0.1 x10^3/uL (0.0-0.7); EOS % 5 % (0-3); HEMATOCRIT 43.4 % (39.0-53.0); HEMOGLOBIN 15.3 g/dL (13.0-17.5); LYMPH # 0.5 x10^3/uL (1.0-4.8); LYMPH % 16 % (24-48); MEAN CORPUSCULAR HEMOGLOBIN 33 pg (25-35); MEAN CORPUSCULAR HGB CONC 35 g/dL (31-37); MEAN CORPUSCULAR VOLUME 94 fL (79-100); MONO # 0.3 x10^3/uL (0.0-1.1); MONO % 10 % (0-9); NEUT % 69 % (31-73); PLATELET COUNT 193 x10^3/uL (140-400); RED BLOOD COUNT 4.62 x10^6/uL (4.30-5.70); RED CELL DISTRIBUTION WIDTH 13.3 % (11.5-14.5); WHITE BLOOD COUNT 2.9 x10^3/uL (4.0-11.0)
[2020-06-28 09:07] LABS: CALCIUM 8.9 mg/dL (8.5-10.1); GFR 77.9; POTASSIUM 3.9 mmol/L (3.5-5.1)
[2020-06-28 09:14] LABS: ALBUMIN 4.3 g/dL (3.4-5.0); ALBUMIN/GLOBULIN RATIO 1.5 (1.0-1.7); TOTAL BILIRUBIN 0.6 mg/dL (0.2-1.0); TOTAL PROTEIN 7.2 g/dL (6.4-8.2)
== END ==
LOC: ONCLAB 08:35
PROVIDERS: ATTEND Internal Medicine Hematology & Oncology
DX: C77.0 Secondary and unspecified malignant neoplasm of lymph nodes of head, face and neck (principal); C01 Malignant neoplasm of base of tongue; D64.81 Anemia due to antineoplastic chemotherapy
CPT/HCPCS: 36415; 80053; 84443; 85025

== ENCOUNTER → 2020-09-27 | Outpatient (CLI) | payer OTHER ==
[2020-02-29 08:52] VITALS: BP 120/75
[~2020-09-27] MED LIST changes: +OLAN5TAB67 PO; -OLAN5TAB9 PO
[2020-09-27 09:41] LABS: BASO % 1 % (0-3); EOS # 0.1 x10^3/uL (0.0-0.7); EOS % 4 % (0-3); HEMATOCRIT 45.3 % (39.0-53.0); HEMOGLOBIN 15.8 g/dL (13.0-17.5); LYMPH # 0.5 x10^3/uL (1.0-4.8); LYMPH % 18 % (24-48); MEAN CORPUSCULAR HEMOGLOBIN 33 pg (25-35); MEAN CORPUSCULAR HGB CONC 35 g/dL (31-37); MEAN CORPUSCULAR VOLUME 94 fL (79-100); MONO # 0.3 x10^3/uL (0.0-1.1); MONO % 10 % (0-9); NEUT # 1.8 x10^3/uL (1.8-7.7); NEUT % 67 % (31-73); PLATELET COUNT 190 x10^3/uL (140-400); RED BLOOD COUNT 4.81 x10^6/uL (4.30-5.70); RED CELL DISTRIBUTION WIDTH 13.1 % (11.5-14.5); WHITE BLOOD COUNT 2.7 x10^3/uL (4.0-11.0)
[2020-09-27 09:42] LABS: CALCIUM 9.5 mg/dL (8.5-10.1); CREATININE 1.2 mg/dL (0.7-1.3); GFR 63.1; POTASSIUM 4.1 mmol/L (3.5-5.1)
[2020-09-27 09:48] LABS: ALBUMIN 4.2 g/dL (3.4-5.0); ALBUMIN/GLOBULIN RATIO 1.4 (1.0-1.7); TOTAL BILIRUBIN 0.6 mg/dL (0.2-1.0); TOTAL PROTEIN 7.3 g/dL (6.4-8.2)
== END ==
LOC: ONCLAB 08:48
PROVIDERS: ATTEND Internal Medicine Hematology & Oncology
DX: C01 Malignant neoplasm of base of tongue (principal); E03.2 Hypothyroidism due to medicaments and other exogenous substances
CPT/HCPCS: 36415; 80053; 84443; 85025

== ENCOUNTER → 2020-11-01 | Outpatient (CLI) | payer OTHER ==
[2020-02-29 08:52] VITALS: BP 120/75
[~2020-11-01] MED LIST changes: +IOHEXOL 300 MG/ML 100ML VIAL. IV ONE
--- NOTE | 2020-11-01 09:35 | RAD ---
PQRS Compliance Statement: One or more of the following individualized dose reduction techniques were utilized for this examinat ion: 1. Automated exposure control 2. Adjustment of the mA and/or kV according to patient size 3. 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 TECHNIQUE: Multiple axial CT images of the neck were obtained after intravenous administration of non ionic contrast. Coronal and sagittal reformats are provided. FINDINGS: No suspicious abnormality identified involving the visualized portions of the brain parenchyma and po sterior fossa. The skull base is normal. Mild mucosal thickening of the right maxillary sinus. Orbita l contents appear normal. The sella turcica and cavernous sinus regions appear intact. The mastoid ai r cells are well aerated. The fossa of Rosenmuller is normal. Nasopharynx is normal in appearance. The parotid space contents a nd addressing machine operator space contents appear intact. The parapharyngeal spaces are normal. The submandibular contents appear intact. Oral cavity, floor of mouth and sublingual space appear normal.. Oropharynx is normal in appearance. The epiglottis and piriform sinuses are normal. There may be mild asymmetric soft tissue thickening along the left aryepiglottic fold extending into the left supraglo ttis. This may reflect posttreatment related edema. The vallecula appears normal. The vocal cords an d trachea are normal. There is a 5 mm left thyroid nodule. The carotid space contents are normal. No pathologically enlarged cervical lymph nodes. The perivertebral space contents are normal. The supraclavicular regions appear intact. The visualiz ed mediastinum is normal. The visualized lungs appear clear. No significant osseous abnormality. IMPRESSION: Continued treatment response noted with improved soft tissue thickening in the hypopharyngeal and sup raglottic region as compared to prior PET/CT. No new or enlarging cervical lymph adenopathy. No findi ngs to suggest disease progression. Electronically signed by: Zuri Fu MD (11/01/2020 9:32 AM) [id number]
--- NOTE | 2020-11-01 16:41 | RAD ---
AP and Lateral Views of the Chest 11/01/2020 7:39 AM Indication: Reason: METS TO HEAD AND NECK LYMPH NODES / Spl. Instructions: / History: Comparison: None Findings: There is no focal consolidation or infiltrate identified. Heart size is normal.. There is n o evidence of pneumothorax or pleural effusion. No acute osseous abnormalities are identified. Impression: No evidence of acute cardiopulmonary process. Electronically signed by: Dontae Manzo MD (11/01/2020 4:39 PM) [id number]
== END ==
LOC: CT 09:19
PROVIDERS: ATTEND Radiology Radiation Oncology
DX: C77.0 Secondary and unspecified malignant neoplasm of lymph nodes of head, face and neck (principal); J32.0 Chronic maxillary sinusitis; E04.1 Nontoxic single thyroid nodule
CPT/HCPCS: 70491; 71046; Q9967

== ENCOUNTER → 2021-06-16 | Outpatient (CLI) | payer OTHER ==
[2020-02-29 08:52] VITALS: BP 120/75
[~2021-06-16] MED LIST changes: -IOHEXOL 300 MG/ML 100ML VIAL. IV ONE
[2021-06-16 11:46] LABS: BASO % 1 % (0-3); EOS # 0.1 x10^3/uL (0.0-0.7); EOS % 4 % (0-3); HEMATOCRIT 46.5 % (39.0-53.0); HEMOGLOBIN 16.1 g/dL (13.0-17.5); LYMPH # 0.6 x10^3/uL (1.0-4.8); LYMPH % 17 % (24-48); MEAN CORPUSCULAR HEMOGLOBIN 32 pg (25-35); MEAN CORPUSCULAR HGB CONC 35 g/dL (31-37); MEAN CORPUSCULAR VOLUME 94 fL (79-100); MONO # 0.3 x10^3/uL (0.0-1.1); MONO % 8 % (0-9); NEUT # 2.8 x10^3/uL (1.8-7.7); NEUT % 72 % (31-73); PLATELET COUNT 197 x10^3/uL (140-400); RED BLOOD COUNT 4.96 x10^6/uL (4.30-5.70); RED CELL DISTRIBUTION WIDTH 13.4 % (11.5-14.5); WHITE BLOOD COUNT 3.9 x10^3/uL (4.0-11.0)
[2021-06-16 18:21] LABS: FREE T4 0.87 ng/dL (0.76-1.46); THYROID STIM HORMONE (TSH) 2.404 uIU/mL (0.358-3.74)
[2021-06-16 23:08] LABS: ALBUMIN 4.1 g/dL (3.4-5.0); ALBUMIN/GLOBULIN RATIO 1.3 (1.0-1.7); CALCIUM 8.9 mg/dL (8.5-10.1); CREATININE 1.2 mg/dL (0.7-1.3); GFR 62.9; POTASSIUM 4.3 mmol/L (3.5-5.1); TOTAL BILIRUBIN 0.3 mg/dL (0.2-1.0); TOTAL PROTEIN 7.2 g/dL (6.4-8.2)
== END ==
LOC: LAB 11:18
PROVIDERS: ATTEND Radiology Radiation Oncology
DX: C77.0 Secondary and unspecified malignant neoplasm of lymph nodes of head, face and neck (principal); C01 Malignant neoplasm of base of tongue; R53.83 Other fatigue
CPT/HCPCS: 36415; 80053; 83615; 84439; 84443; 84481; 85025